=== PATIENT | female | born 1980 | race Asian ===

== ENCOUNTER 2021-12-09 12:30 | Outpatient (RCR) | payer BC | END 2021-12-17 | LOC: M OT 12:30 | PROVIDERS: ATTEND Physician Assistant Medical | DX: S63.502A Unspecified sprain of left wrist, initial encounter (principal) ==

== ENCOUNTER 2022-01-11 14:30 | Outpatient (RCR) | payer BC | END 2022-01-16 | LOC: M OT 14:30 | PROVIDERS: ATTEND Physician Assistant Medical | DX: S63.502A Unspecified sprain of left wrist, initial encounter (principal); W18.30XA Fall on same level, unspecified, initial encounter; Y92.009 Unspecified place in unspecified non-institutional (private) residence as the place of occurrence of the external cause ==